=== PATIENT | female | born 1940 | race Caucasian/White ===

== ENCOUNTER 2020-06-04 14:43 | Emergency (ER) | payer MEDICARE, OTHER, SELFPAY ==
[2020-06-04 14:44] VITALS: BP 151/52; PULSE 68; RESP 16; TEMP 36.7; O2SAT 97; BMI 27.8
--- NOTE | 2020-06-04 15:01 | CT_ITS ---
STUDY: CT BRAIN WITHOUT CONTRAST REASON FOR EXAM: Female, 80 years old. FALL TODAY/HEMATOMA LT EYELID RADIATION DOSAGE (If Supplied By Facility): CTDIvol = ( 44.99 ) mGy, DLP = ( 745.49 ) mGycm TECHNIQUE: Transaxial CT imaging of the brain was performed without administration of intravenous contrast material. Individualized dose optimization techniques were used for this CT. COMPARISON: No relevant priors. FINDINGS: There is a 1.3 cm x 3.9 cm hematoma in the soft tissues overlying the superior aspect of the left orbit and left frontal bone. 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 Normal white matter tracts of the cerebral hemispheres. Normal basal ganglia and thalami. Normal brainstem. Normal cerebellum. There is no intracranial hemorrhage. There are no findings of an acute ischemic infarction. Atherosclerotic calcification of the vertebral arteries and cavernous portions of the internal carotid arteries bilaterally. Normal visualized paranasal sinuses. CT/Brain/Head without Contrast IMPRESSION: Chronic involutional changes of the brain. 1.3 cm x 3.9 cm hematoma overlying the superior aspect of the left orbit and left frontal bone. Electronically Signed: Tay Gongora, at 15:27 EDT , Service support ,
--- NOTE | 2020-06-04 15:01 | CT_ITS ---
STUDY: CT FACIAL BONES WITHOUT CONTRAST REASON FOR EXAM: Female, 80 years old. FALL TODAY/HEMATOMA LT EYELID RADIATION DOSAGE (If Supplied By Facility): CTDIvol = ( 29.38 ) mGy, DLP = ( 584.19 ) mGycm TECHNIQUE: The patient was scanned in a multi detector CT scanner. Sagittal and coronal images were reconstructed. Individualized dose optimization techniques were used for this CT. COMPARISON: None. FINDINGS: Focal hematoma overlying the superior aspect of the left orbital region and left frontal bone. Normal orbital parmar and orbital contents. Normal nasal bones and anterior nasal spine. Normal facial bones. There is no demonstrated fracture. Normal visualized paranasal sinuses. CT/Sinus/Facial Bone IMPRESSION: Focal hematoma overlying the superior aspect of the left orbital region and left frontal bone. Electronically Signed: Tay Gongora, at 15:28 EDT , Service support ,
--- NOTE | 2020-06-04 15:02 | RAD_ITS ---
STUDY: X-RAY - RIGHT FOOT CLINICAL: Female, 80 years old. Fall today, bruising to right foot. TECHNIQUE: 3 view(s) of the foot. COMPARISON: None. FINDINGS: There is an enthesophyte involving the posterior superior calcaneus at the site of insertion of the Achilles tendon. Small plantar spur. Normal visualized subtalar, talonavicular, calcaneocuboid, tarsal and tarsometatarsal articulations. Normal metatarsi. 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 Normal tibial and fibular sesamoid bones. Normal interphalangeal joint of the great toe. Normal phalanges of the great toe. Normal second through fifth metatarsophalangeal joints. Normal interphalangeal joints and phalanges of the lesser toes. Soft tissue swelling. RAD/Foot min 3 Views IMPRESSION: Degenerative changes. No fracture seen. Mild soft tissue swelling. Electronically Signed: Tay Gongora, at 15:36 EDT , Service support ,
--- NOTE | 2020-06-04 15:03 | ED.DCSUM_ITS ---
- ER Visit Summary Date of Service: 06/04/20 Chief Complaint: Fall History of Present Illness: The patient is a 80 F presenting after fall. Patient was walking on uneven concrete. She stubbed her toe and fell forward. She hit her head. She denies loss of consciousness. No amnesia to the event. She is on aspirin, denies other anticoagulants. She was able to ambulate after the fall. Denies other complaints. Physical Examination: Vitals are stable. Patient is afebrile. Alert no acute distress. HEENT exam hematoma left eyebrow. PERRL. Extraocular muscles intact. No pain with EOM. Neck is nontender Lungs are clear and equal bilaterally. Heart is regular rate and rhythm. Abdomen is soft nontender nondistended. Extremities mild abrasion right knee with active range of motion. Ecchymosis right second toe with no tenderness. Skin is warm and dry. No focal neurologic deficit. Remainder of exam is unremarkable. Emergency Department Course and Treatment: Right foot x-ray shows no fracture. CT head shows chronic involutional changes of the brain. 1.3 cm x 3.9 cm hematoma overlying the superior aspect of the left orbit and left frontal bone. CT facial bones shows focal hematoma overlying the superior aspect of the left orbital region and left frontal bone. On reevaluation, patient is resting comfortably. She is advised to continue to use ice. She declined pain medication. Advised to follow up with her primary care physician. Advised return to ED for worsening complaints. Disposition: Discharged home Impression: Mechanical fall, facial hematoma This note was generated with [employer] dictation software. It may contain incorrect words, spelling, and punctuation that were not noted in review of the chart prior to signing ED Disposition - Plan for ED Patient: Instructions: ED Mechanical Fall, ED Hematoma Referrals: [facility] Doctor,Out of [NON-STAFF] -
--- NOTE | 2020-06-04 16:16 | ED.DEP ---
ED Disposition - Plan for ED Patient: Instructions: ED Mechanical Fall, ED Hematoma Referrals: [facility],Out of [NON-STAFF] -
== END 2020-06-04 16:53 | disposition home or self-care (01) ==
LOC: ED 15:27
PROVIDERS: Emergency Provider Emergency Medicine
DX: S00.12XA Contusion of left eyelid and periocular area, initial encounter (principal); S90.121A Contusion of right lesser toe(s) without damage to nail, initial encounter; S80.211A Abrasion, right knee, initial encounter; W18.09XA Striking against other object with subsequent fall, initial encounter; Y93.01 Activity, walking, marching and hiking; Y92.9 Unspecified place or not applicable; Y99.9 Unspecified external cause status; Z79.82 Long term (current) use of aspirin; Z79.899 Other long term (current) drug therapy
CPT/HCPCS: 70450; 70486; 73630; 99282